=== PATIENT | male | born 1955 | race Caucasian/White ===

== ENCOUNTER 2018-10-27 16:43 | Inpatient (IN) | payer OTHER ==
[~2018-10-27] VITALS: Ht 180.3 cm; Wt 102.5 kg
--- NOTE | 2018-10-27 16:45 | NUR ---
CLIENT HERE FROM [facility] [address] VIA EMT. CLIENT ABLE TO WALK FROM CART TO ROOM. HAS ON ON PAPER SHIRT AND SCRUB PANTS. HUGGED NURSE AND ALSO KISSED NURSE ON CHEEK, TRIED TO ALSO KISS AND HUG SECOND NURSE.
[2018-10-27 17:00] VITALS: BP 148/68
[2018-10-27 19:12] VITALS: BP 148/68
[2018-10-27 19:16] VITALS: BP 124/84
--- NOTE | 2018-10-27 22:30 | NUR ---
ASSUMED CARE @ 19:15. SITTING IN DAY ROOM WITH PEERS. ATE SNACK AND PARTICIPATED IN EVENING WRAP UP. AT FIRST REFUSED 2100 MEDS @ 21:15. HIS MEDS WERE EXPLAINED TO HIM AND HE ACCEPTED THEM @ 21:30. SITTING UP IN DAY ROOM AT THIS WRITING. A&O X3. TOOK HIS NICOTINE PATCH OFF SELF. ACKNOWLEDGES ANXIETY AND DEPRESSION. DENIES HI AND SI. CONVERSATION CONFUSED, WILDLY UNRELATED SPEACH NOTED. WILL CONTINUE TO MONITOR.
--- NOTE | 2018-10-28 07:30 | NUR ---
CLIENT STATED HE WANTED THIS NURSE TO CALL [facility] POLICE DEPT TO GO TO THE HOUSE WHERE HE WAS STAYING AND TELL HIS FRIEND LAMBERTO SRINIVASAN THAT HE WAS IN HOSPITAL. ALSO HE WANTED HIS 4 BAGS THAT WAS THERE THAT HAS HIS MEDS, CIG., AND CELL PHONE. HE DOESN'T REMEMBER HIS FRIENDS NUMBER AND NOT SURE ON ADDRESS. HE STATED HE WANTED THIS NURSE TO CALL EVERY HOUR TO MAKE THE POLICE GO TO HOUSE, IF NOT HE WAS GOING TO LEAVE AMA. HE ALSO WANTED COFFEE AT 0700 THIS AM WHILE NURSES WAS IN REPORT, AND WAS TOLD TO WAIT TILL AFTER REPORT, HE STATED WELL YOU DON'T KNOW ME. CLIENT IS ALSO VERY TOUCHY WITH NURSES OR AID. HE HUGS NURSE, TOUCHES FORARM AND TRIES TO GIVE NURSES KISSES ON CHEEK.
[2018-10-28 08:11] VITALS: BP 143/87
--- NOTE | 2018-10-28 10:00 | NUR ---
WENT OVER ADDRESS WITH CLIENT, LOOKING AT [employer] FOR HOUSE.
[2018-10-28 10:22] VITALS: BP 143/87
--- NOTE | 2018-10-28 11:30 | NUR ---
CLIENT IN WITH DR. OSUNA AT THIS TIME. STILL HAVE NOT CALLED POLICE ABOUT GETTING HIS BELONGINGS FROM THE HOUSE OFF [facility]. HE IS NOT SURE OF ADDRESS.
--- NOTE | 2018-10-28 14:00 | NUR ---
CLIENT HAS BEEN GIVING OTHER PATIENT A BACK MESSAGE, TOLD CLIENT THAT HE IS NOT SUPPOSED TO TOUCH OTHER RESIDENTS.
--- NOTE | 2018-10-28 14:30 | NUR ---
CALLED [facility] FOR THEM TO GO TO [address] [place] [address]. TO LET ADAM LANGLEYIGGS KNOW THAT CLIENT WAS IN HOSPITAL. GAVE THE UNIT PHONE NUMBER TO [facility].
--- NOTE | 2018-10-28 14:56 | NUR ---
OFFICER SHIMA CHECKED ON HOUSE WHICH IS [address] NO ONE AT DOOR, LEFT NOTE FOR CLIENT AND LEAVING NUMBER FOR UNIT.
--- NOTE | 2018-10-28 15:30 | NUR ---
NOTIFIED CLIENT ABOUT POLICE WENT TO HOUSE AND LEFT NOTE. CLIENT OK WITH POLICE ATTEMPT.
--- NOTE | 2018-10-28 18:45 | NUR ---
WATCHING TV WITH OTHER CLIENTS. WANTING TO DRINK COFFEE TODAY.
[2018-10-28 19:54] VITALS: BP 142/80
--- NOTE | 2018-10-29 07:24 | NUR ---
patient in day room beginning of shift. calm, conversational but had removed his nicotine patch, tossed on ground. said "this patch isnt working. by morning ill be throwing a table across this room without a cigarette." slept 4hrs. this morning very angry, agitated that no coffee was available. yelling at staff. oncoming nurse present, de - escalating and addressing behavior. patient currently sitting in day room.
[2018-10-29 08:00] VITALS: BP 103/54
[2018-10-29 11:56] LABS: CALCIUM 9.3 mg/dL (8.5-10.1)
--- NOTE | 2018-10-29 14:26 | NUR ---
LABILE MOOD NOTED SO FAR THIS SHIFT-AT 0700 SHIFT CHANGE WAS NOTED TO BE YELLING LOUDLY IN DAYROOM-"I WANT MY COFFEE DAMMIT-I CAN'T HAVE A CIGARETTE AT LEAST I CAN GET SOME COFFEE" DID GET UP ABRUPTLY FROM DAYROOM AND GO TO ROOM BRIEFLY AND WAS CALMER UPON RETURNING TO EAT BREAKFAST. INTRUSIVE WITH PEERS AND NEEDS REDIRECT TO NOT TOUCH THEM OR ATTEMPT TO TAKE CARE OF THEM. NEEDS REDIRECT/REMINDERS FOR APPROPRIATE BOUNDRIES WITH NURSING STAFF WELL-I.E ASKING NURSE IF SHE IS SINGLE AND STATING HOW PRETTY NURSES ARE -"I NEED A DATE" SPEECH CLEAR,CONVERSATION CIRCUMSTANTIAL AND NON-GOAL DIRECTED" DENIES SI/HI. NO NOTED OR REPORTED PSYCHOSIS-MILD GRANDIOSITY/POOR INSIGHT-JUDGEMENT AEB STATEMENT"WHEN I AM DISCHARGED THEY NEED TO GIVE ME A COUPLE HUNDRED FOR MY TRAVEL EXPENSES-THAT IS WHAT THEY DO IN DETENTION"
[2018-10-29 19:51] VITALS: BP 160/108
[2018-10-30 00:10] LABS: GLYCOHEMOGLOBIN (HGB A1C) 7.1 % (4.8-5.6)
--- NOTE | 2018-10-30 06:30 | NUR ---
ASSUMED CARE @ 19:15. INSISTING ON TURNING OFF THE LIGHTS IN THE DAY ROOM. INSISTING THAT SECURITY BE CALLED. STATING I CONTROL THE LIGHTS. AND I CONTROL YOU AND YOU AND YOU, POINTING TO STAFF. SECURITY CAME. PT GIVEN PRN MEDS FOR AGITATION. CALMED DOWN AND WATCHED TV UNTIL 11:00. SLEPT 5.2 HOURS.
--- NOTE | 2018-10-30 08:56 | H ---
[facility] [address] [place] [address] HISTORY AND PHYSICAL Name: ARMANI ROSSI Room #: 525B-B ADM IN M.R.#: [id number] Admission: 10/27/18 ������������������ Attend Phys: Mohan Gallardo DO Discharge: ������������������ Date of : 59 Report #: [id number] THIS REPORT FOR: //name// CC: Mohan Gallardo ATTENDING PHYSICIAN: Mohan Gallardo DO. RUBBER CHEMIST: Mohan Diaz MD. REASON FOR ADMISSION: Active zora, reported thoughts of suicide, threat to blow up the [facility]. HISTORY OF PRESENT ILLNESS: This is a 63-year-old mildly obese male who is from his . The patient reports he arrived in [place] barely a week ago having taken an airplane flight from [place], [place]. He stayed at a [facility] for a few days, befriended a homeless person there, stayed in his home in [place]. Yesterday took an Uber to the [facility] Emergency Room out of concerns of feeling out of sorts, manic. The report from the Emergency Room is that he had suicidal and homicidal ideation and states he was attempting to get home, but the system is "keeping me from doing that." He denied auditory or visual hallucinations, states that he had some thoughts of hurting himself, but will not divulge the plan to the examiner. Denied chest pains or shortness of breath. No fevers or chills. Stated he is on lithium at home and states he is compliant with this medication. On my interview this morning, which we did in the assessment room, the patient reports he has been self-medicating with lithium for years, so this is not managed by a physician or psychiatrist. His dose has been 300 mg a day. Of note, his lithium level was negligible at [facility]. PAST MEDICAL HISTORY: Diabetes mellitus, hypertension, history of transient ischemic attack versus stroke 05/2018. He states he was hospitalized from 05/29/2018 through 06/05/2018 at the [facility] in [place]. Denied surgeries. Roughly a pack a day smoker. REVIEW OF SYSTEMS: From the Emergency Room: CONSTITUTIONAL: Negative for fever. HEENT: Negative for congestion or visual disturbance. RESPIRATORY: Negative for shortness of breath. CARDIOVASCULAR: Negative for chest pain. GASTROINTESTINAL: Negative for abdominal pain. GENITOURINARY: Negative for hematuria. MUSCULOSKELETAL: Negative for back pain. SKIN: Negative for rash. ALLERGIC/IMMUNOLOGIC:: Negative for immunocompromised state. NEUROLOGIC: Negative for headaches. He was positive in the ER for suicidality. Today he denied suicidality, homicidality, auditory, visual or tactile hallucinations. [facility] [address] [place] [address] HISTORY AND PHYSICAL Name: ARMANI ROSSI Room #: 525B-B ADM IN M.R.#: [id number] Admission: 10/27/18 ������������������ Attend Phys: Mohan Gallardo DO Discharge: ������������������ Date of : 59 Report #: [id number] All other review of systems were negative. His physical examination in the Emergency Room was grossly negative. Additional [facility] from the [facility] assessment states he was found on the hospital grounds. The patient was confused, asked security to help him get back home. He was unable to give an address. Speech is loose. Thoughts are tangential. Sabianism preoccupations present. The patient was irritable, agitated because no one will help him get back home. The patient reports being depressed due to recent breakup. He then says that he and his chose to live apart 12 years ago, and I do not think that is entirely true. The patient became upset because he want to go outside and smoke and when they told him he could not in the [facility] ER, he said "come back and blow up all the people and take down the classified copy control clerk in the hospital." He is also depressed because he learned that he could not access money from his [employer] account for another 3 months. The patient was asking ER social work to send him to [facility] at [address] [place] [address] because the station [place]. The patient states his medication is at home as well as two men has been staying with. He reported this to [facility] as did to me that "Romel Gallardo, in [place], [place]", with whom he was staying in the last couple of nights, states it is a bunch of manics there. SOCIAL HISTORY: 22 years, from for more than 12 years. He has a son, Jackson, in [place], [place]. He does not know Jackson's phone number. He did not report to me other children, but there may be. Denied physical, sexual, emotional abuse history. EDUCATIONAL HISTORY: High school education. [facility] mental status examination was performed today, he scored 23/30. Notable deficits, he got the three digit reverse digit span incorrect but the 4 digit correct. He got 4/5 objects on delayed recall. He answered incorrectly on making change question, however, it was amounts adding up to 100. He was 8/8 on the paragraph question, so his deficits were predominantly intentional in nature. LABORATORY DATA: From [facility], sodium 139, potassium 4.1, chloride 104, bicarbonate 25, anion gap 10, glucose 117, BUN 17, creatinine 1.0, EGFR non- 76, calcium 9.6. CBC: White count of 8.4, H and H 14.7 and 43, platelet count 225. Vader less than 0.2. Urinalysis was negative. Urine drug screen was negative. On his EKG, QTC was 460, QT 391, heart rate was 80. RI interval was 184 milliseconds. He reports he is not taking any hyperglycemic medication but the fishing worker said that they have ____ antipsychotic in the ER, but they do not see that documented at the notes I am [facility] [address] [place] [address] HISTORY AND PHYSICAL Name: ARMANI ROSSI Room #: 525B-B ADM IN [facility].#: [id number] Admission: 10/27/18 ������������������ Attend Phys: Mohan Gallardo DO Discharge: ������������������ Date of : 59 Report #: [id number] looking at. I have already given 5 mg of Zyprexa Zydis. He is 5 feet 11 inches height, supposedly 225. VITAL SIGNS: Here on 10/27/2018, at the time of evaluation, Temperature 36.6, pulse rate 66, respirations 16, BP 143/87, O2 sat 96%. Only lab work, we have done here, fasting blood sugar 141 this morning. The AC lunch was 163. Dr. Diaz has not seen the patient yet. MENTAL STATUS EXAMINATION: This well-developed, well-nourished, obese male wearing glasses, but disheveled. Attention fair. Concentration fair. Speech, normal rate, volume and tone. Thought process is linear and goal directed. Thought content focused on getting his belongings from the manic people in [place]. Some intermittent psychomotor agitation and psychomotor retardation. Denied auditory, visual, or tactile hallucinations. Denied suicidal intent or plan. Did endorse hopelessness, helplessness, but not homicidal intent or plan. Memory slight impairment for recent and remote, appears to be intact for immediate memory. He did have some learning difficulties so I went through 3 iterations to help him learn that 5 items to recall. Insight limited. Judgment limited. Fund of knowledge, no greater than average. STRENGTHS: Relatively young age, not appearing demented, yet. Mild cognitive impairment at most. WEAKNESSES: he is remote from where he resides, estranged from family and looking like he is uninsured and we will need to confirm that on Monday. FORMULATION: A 63-year-old obese male presenting with disorganization, probable zora, history of bipolar disorder. DIAGNOSIS: Bipolar 1 disorder, most recent episode manic, cognitive impairment unspecified, diabetes mellitus, suboptimal control, possible hypertension. PLAN: Evaluated, stabilized. Obtain collateral. I have started him on haloperidol 5 mg twice a day. Risks, benefits, alternatives were reviewed including risk of Parkinson symptoms, tardive dyskinesia. We also reviewed the risks and benefits of lithium therapy given his relatively homeless unsettled state and lab monitoring needed for lithium, I would advise against it at this point. Efforts are going to need to be made to reach his family over the next couple of days to get some collateral. I fear we will have difficulty recovering his belongings given whom he left it with and the inability of any family or responsible people locally to get them. I doubt the police will assist with this as it is really not a criminal matter. [facility] [address] [place] [address] HISTORY AND PHYSICAL Name: ARMANI ROSSI Room #: 525B-B ADM IN M.R.#: [id number] Admission: 10/27/18 ������������������ Attend Phys: Mohan Gallardo DO Discharge: ������������������ Date of : 59 Report #: [id number] Time spent on interview, review of records, coordination of care on this patient is around 60 minutes. Also, I do have p.r.n. ordered for him,lorazepam 1 mg q. 6 hours p.r.n. and Haldol 5 mg p.o. q. 6 p.r.n. for agitation, psychosis. ��������������������������������������������� <ELECTRONICALLY SIGNED> ���������������������������������������� By: Mohan Gallardo DO ��������������������������������������������� 10/30/18 [id number] Mohan Gallardo DO /nt
--- NOTE | 2018-10-30 10:11 | NUR ---
DANGELO contacted the [facility] police department to locate pt son James Goode. DANGELO contacted the son employer at [facility]. Yordy stated that he will get in contact with James textile supervisor immediately, and them contact [facility]. DANGELO provided contact number, and asked if they can have James contact us immediately. DANGELO will follow-up with pt upon discharge.
--- NOTE | 2018-10-30 11:33 | NUR ---
PSYCHOSOCIAL ASSESSMENT Diagnosis: BIPOLAR 1 Admit Date: 10/27/18 Psychiatrist: THAO Symptoms associated with current admission: Hallucinations Violence/aggression Paranoid ideation Presenting problems: Pt was hallucinating that his someone is out to get him. Pt thinks that his estranged does not have his best interest in heart. Precipitating Factors: Non-compliance psychothx Non-compliance medication Lack of social support Comments: IN [place] History of High Risk Behavors: Hx violence/aggression Suicide Risk Factors: D A-Signs of alcohol/substance abuse w/ suicide ideation B-Recent suicidal thoughts or attempts C-Recent thoughts or attempts of harming someone else D-Altered mental status due to psychiatric/chem dep etiology E-The behavior exists - add comment PSYCHIATRIC HISTORY Age of onset: 87 Prior hospitalizations: 1-2 times hospitalized Hospital names and dates, if available: [facility] Most Recent Outpatient HX: Psychiatrist Additional information: Legal Status: Voluntary Guardian/Conservatorship type: Contact name: Contact phone: Other: Name: Phone: Other legal issues: (Arrests/convictions Current Status) Pt had a misdmeanor for disturbing the peace, and gun possession. P.O. Name and Phone #: FAMILY HISTORY Place of : [place], [place] Raised in: [place] # Siblings & order: Describe relationships within family of origin: Pt has a sister Sallie Ward who live in [place], [place]. Pt stated that he pretty close to his sister. Any psychiatric or substance abuse problems within family of origin: Y Has patient been sexually or physically abused, neglected or been taken advantage of financially? N Has the abuse been reported? N Other pertinent family information: Marital history/significant relationships: Domestic violence: Y Children ages & who is caring for them: Pt has three adult children but Angie is . Is child welfare involved? N Drug history: None Alcohol Use: Frequency: Quantity: Have you ever felt you ought to Cut down on drinking? Have people Annoyed you by criticizing your drinking? Have you ever felt bad or Guilty about your drinking? 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 AXIS SCREENING TOOL [place] I Mood Disorders: Other Conditions [place] II Personality/Mental Retardation: [place] III Medical Impairment: Alzheimer's [place] IV Problem(s) with: Housing Education Primary support group [place] V: 50-Serious w/impairment Additional [place] comments: PERSONAL BACKGROUND Relevant cultural issues (ethnicity, values, beliefs, spiritual): Spiritual Gnosticism: Spiritism Importance of adventism to patient: Medium What hobbies/interests does the patient have? Pt loves to drive the truck over the road Sexual orientation (relevant impact to current treatment): Heterosexual : Where did you serve: Branch of service: Rank: Discharge status: Are you a combat ? Occupational/Work: Do you work? N Do you want to work? N How many hours do you work/week? 0 How many jobs have you had in the past 5 years? 1 Do you need assistance finding a job? N Does the patient need assistance in job training? N Source of income: SSA Does patient have a Payee? N Payee name: Approximate monthly income: 1000 Does patient have adequate funds for next 30 days? Y Education background: High school diploma Highest grade completed: 12th grade Other Educational/training programs: Functional deficits: None Explain functional deficits: LEFT KNEE HAS ARTHRITIS Current living situation: Homeless Address/phone where pt. is livin[address] [place], [place] [address] [facility] Does the patient plan to continue there after DC? Yes Patient lives with: Child/children Will family/significant other be involved in treatment? Other community support services utilized: Pt will need to assisted with a bus ticket home, and cab voucher Support System Available (family/friend) Name: James Goode Phone: Relationship: Son Name: Joyce Saritha Phone: Relationship: daughter Name: Phone: Relationship: Patient strengths: Motivated Humor Patient's assets: Verbal Patient's weaknesses: Poor family support Chronic hx mental illness Financial support Poor relationships Additional weaknesses: Pt does npot have the family support he. Pt is very dementated, and unable to provide information about his son. Patient's perception of current high school social studies tutor/case management needs: Pt stated that Sw assisted with going home, been comliant with medication, and more. PRELIMINARY DISCHARGE PLAN Discharge plan/Community resource contacts: Pt will discharge home to [facility] or homeless fci. Discharge needs: Pt will need assistance going back home to [place], [place]. Problems anticipated on discharge: Compliance w/ med regimen Comments: (factors affecting DC plan/pt. response/interventions) Pt will beed to find a psychiatrist or doctor to treat his dementia.
[2018-10-30 14:31] VITALS: BP 125/84
--- NOTE | 2018-10-30 15:28 | NUR ---
Nutrition: Weight is error. Have requested nsg to obtain accurate weight. Noted pt eating 100% of meals so far.
[2018-10-30 19:39] VITALS: BP 113/59
[2018-10-30 22:22] VITALS: BP 113/59
--- NOTE | 2018-10-31 02:54 | NUR ---
PT OUT AND INTERACTING APPROPRIATELY THIS PM. WATCHING TV AND INTERACTING WITH STAFF AND PEERS. DENIES HI, TOOK HS MEDS PRESCRIBED. WENT TO BED AT 2200, AND SLEPT WELL THROUGH THE NIGHT.
[2018-10-31 07:36] VITALS: BP 133/82
--- NOTE | 2018-10-31 11:06 | NUR ---
JESSE, and Dr. Gallardo spoke with pt son Xavier on the phone [phone]. Xavier stated that he does not if the pt will be able to come home with him due to his work. Pt son stated that the pt ex- would be able to care for him in [place]. Dr. Gallardo mention that pt has cognition impairment that is causing him to have behavior disturbance. Dr. Gallardo recommended that pt comes back to his home to live with him for two weeks, and manage his medication in a routinely manner. JESSE will get the approval for an bus ticket to his home [facility]. Pt will be de d/c on Monday, November 02, 2018. Xavier will be able to pick him up from the bus stop upon arrival. Jesse will allow pt to call his son this afternoon. JESSE will follow-up with pt upon discharge.
[2018-10-31 20:28] VITALS: BP 147/84
--- NOTE | 2018-10-31 22:56 | NUR ---
ASSUMED CARE @ 19:15. FSBS @ 20:15 167. 3 U OF SS INSULIN PROVIDED. TYLENOL 650 PROVIDED FOR R SHOULDER PAIN. WATCHING BASKETBALL ON TV IN DAY ROOM. TV TURNED OFF @ 10:00. PT WENT TO BED AT THAT TIME.
--- NOTE | 2018-11-01 06:25 | NUR ---
SLEPT 7 HOURS.
[2018-11-01 07:36] VITALS: BP 132/65
[2018-11-01 07:40] VITALS: BP 130/77
--- NOTE | 2018-11-01 14:21 | NUR ---
Recreational Therapy Weekly Progress Note Date of Admission: 10/27/18 Date of Activity Therapy Assessment: 10/30/18 Activity Goal: Patient will participate in 2 recreational therapy groups per day until discharge. Initial Goal: Improve social boundaries and skills. Exhibit knowledge of 2 relaxation/grounding techniques. Weekly progress towards goal: On track Group participation level: Full Behaviors observed: Patient attends most groups. Lacks impulse control and occassionally talks out/interrupts. Patient lacks social boundaries. Frequently requires reminders not to touch peers. Plan: No change towards goal
--- NOTE | 2018-11-01 16:19 | NUR ---
DANGELO spoke with the director Hedy concerning assisting the pt with a one-way bus ticket to [facility] [place] on November 02, 2018. Hedy stated that she reach out to Yulissa the WATCHMAKING TEACHER to recieev confirmation of the purchase.
[2018-11-01 20:47] VITALS: BP 141/89
--- NOTE | 2018-11-02 06:50 | NUR ---
PATIENT WENT TO BED EARLY AND SLEPT 10 HOURS.
[2018-11-02 10:02] VITALS: BP 137/92
--- NOTE | 2018-11-02 12:39 | NUR ---
DANGELO purchase a bus ticket for pt to leave [place], [place]. Pt will be leaving on November 03, 2018 at 6:00pm. Pt will arrive in [place] on November 04, 2018 at 2:15am. DANGELO has notified the pt son that he will be d/c on November 03, 2018 and arriving to him on the next following day. James Goode stated that he will be there to pick him up at the bus stop. DANGELO will follow-up with pt upon discharge.
[2018-11-02 15:00] VITALS: BP 137/92
[2018-11-02 19:23] VITALS: BP 167/102
[2018-11-03 00:48] VITALS: BP 167/102
--- NOTE | 2018-11-03 03:42 | NUR ---
PT OUT WITH PEERS AND STAFF AND INTERACTING APPROPRIATLY. WATCHING TV. TOOK HS MEDS ORDERED. LOOKING FORWARD TO IMPENDING DC. WENT TO BED AFTER BB GAME AND CONTINUES TO SLEEP AT THIS TIME.
[2018-11-03 07:52] VITALS: BP 145/86
[2018-11-03] MEDS ORDERED: HALOPERIDOL 5 MG5 MG PO (10:35)
[2018-11-03] MEDS ORDERED: GLUCOPHAGE500 MG PO (10:39)
--- NOTE | 2018-11-03 18:27 | NUR ---
Patient Name: ARMANI GOODE Admission Date: 10/27/18 DISCHARGE PLAN: Pt was discharged to the [facility] bus station to go home with his Xavier Goode. Pt is from [place], [place]. notified the son that pt was discharge in on his way to the bus station to catch the bus home. Care Assessment: DR. Gallardo assessed pt, and diagnose him with Bipolar I. Pt was recommended to continue seeking service with psychiatrist within his hometown. Level II Assessment: None Transportation: Pt was transported the [employer] cab. Special Instructions/Notes: Pt was given medication for 10 days supply. Pt was given those medication to last him until he goes home with his son. DISCHARGE TO FACILITY: Facility: Phone: Fax: Address: Contact Name: Phone: PCP: THAO Psychiatrist: YASH
--- NOTE | 2018-11-03 18:32 | NUR ---
DISCHARGE INSTRUCTIONS INCLUDING RX,FOLLOW UP RECOMMENDATIONS,BUS SCHEDULE,REVIEWED WITH PT-HE STATES UNDERSTANDING AND DENIES QUESTIONS/CONCERNS.PT ACCOMPNIED TO ER ENTRANCE BUY THIS RN-ASSISTED INTO TAXI AND VOUCHER PROVIDED TO GOLD WHEEL BLOCKER AND POLISHER-COOPERATIVE WITH DISCHARGE-STATES EAGER TO GO,DENIES COMPLAINTS AND IS ORIENTED X3. GAIT STEADY WITHOUT ASSISTIVE DEVICES
--- NOTE | 2018-11-04 20:41 | D ---
[facility] [place] [address] DISCHARGE SUMMARY Name: ARMANI ROSSI Room #: 525B-B DIS IN M.R.#: [id number] Admission: 10/27/18 ������������������ Attend Phys: Mohan Gallardo DO Discharge: 11/03/18 ������������������ Date of : 59 Report #: [id number] THIS REPORT FOR: //name// CC: Mohan Gallardo DATE OF SERVICE: 11/03/2018 ATTENDING PHYSICIAN: Mohan Gallardo DO LAY OUT MAKER PRESENT AT THE DATE OF DISCHARGE: Wilbert Hill APRN. HOSPITALIST FOR THIS ADMISSION: Mohan Diaz M.D. DISCHARGE DIAGNOSES: Bipolar 1 disorder, most recent episode mixed, severe, improved. ADDITIONAL DIAGNOSES: Include: 1. Diabetes mellitus type 2, new diagnosis. 2. Hypertension. 3. Tobacco use disorder. 4. Partner relational disorder. 5. 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 DISCHARGE PLAN: The patient is given a taxi ride to the [facility], [place], [place] and will be traveling to [place], [place] as that is the closest station to his home in [place], [place]. The patient's discharge medications are as follows: Haloperidol 10 mg p.o. twice daily, he was furnished with a 10-day supply gratis by [facility] and metformin 500 mg twice a day for the diabetes mellitus. The patient needs to establish primary care as well as care in the [facility] [place], [place]. He and his son, James, are aware of this. James was spoken to by telephone. His son, due to vehicular financial concerns, was unable to come down to pick the father up as recommended; therefore, we were left with bussing him to his home. LABORATORIES THIS ADMISSION: The patient was received from [facility], so primarily they were Accu-Chek glucoses which stayed in the 100 range. REASON FOR ADMISSION: Presented to [facility] confused, manic, threatening suicide if he was not helped. Apparently, he had flown from [place], [place] to [place] and it is not entirely clear why he stopped in [facility], perhaps that was as much money he has had at that time and thus as far as he could travel. 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 [facility] [address] [place] [address] DISCHARGE SUMMARY Name: ARMANI ROSSI Room #: 525B-B [facility] IN M.R.#: [id number] Admission: 10/27/18 ������������������ Attend Phys: Mohan Gallardo, Discharge: 11/03/18 ������������������ Date of : 59 Report #: [id number] HOSPITAL COURSE: The patient was initially intrusive, poor boundaries, touching other peers including females. This generally quieted down as the admission proceeded. Given the fact the patient will not be residing here and has poor social support, I did not feel it would be in his best interest to begin him on lithium carbonate. He had been reportedly self-medicating with a 300 mg dose of this for years. I started him on Haldol 5 mg twice a day, titrated to 10 mg twice a day. His sleep fairly normalized, at least 6 hours at night. He ate meals. His insight improved, but certainly was not optimal as the patient currently is not on disability. 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 SLUMS performed during the course of admission was , so he was in mild cognitive impairment range. VITAL SIGNS ON THE DAY OF DISCHARGE: Temperature 36.6, pulse 72, respirations 17, BP 145/86, O2 sat 96%. Discharge mental status exam was done in progress note by Mr. Hill, he is psychiatric nurse practitioner. Prognosis is guarded given his apparent disability, lack of professional care over the years and currently facing housing and financial problem of his son, who has been keeping him his house, so he is planning to return to [place] he says to be with his daughter. ��������������������������������������������� <ELECTRONICALLY SIGNED> ���������������������������������������� By: Mohan Gallardo DO ��������������������������������������������� 11/04/182040 24 27 Mohan Gallardo DO /nt
== END 2018-11-03 18:23 | disposition home or self-care (01) | DRG 885 ==
LOC: SBH 16:43
PROVIDERS: Hospitalist; ADMIT Psychiatry & Neurology Psychiatry
DX: F31.63 Bipolar disorder, current episode mixed, severe, without psychotic features (principal); R45.851 Suicidal ideations; E11.9 Type 2 diabetes mellitus without complications; I10 Essential (primary) hypertension; Z62.820 Parent-biological child conflict; Z63.0 Problems in relationship with spouse or partner; Z86.73 Personal history of transient ischemic attack (TIA), and cerebral infarction without residual deficits
CPT/HCPCS: 10880